=== PATIENT | male | born 1955 | race Caucasian/White ===

== ENCOUNTER 2020-05-05 00:12 | Emergency (ER) | payer OTHER, SELFPAY ==
[2020-05-05 00:15] VITALS: BP 201/93; PULSE 69; RESP 20; TEMP 37; O2SAT 95; BMI 26.6
--- NOTE | 2020-05-05 00:27 | CT_ITS ---
STUDY: CT ABDOMEN AND PELVIS WITHOUT CONTRAST REASON FOR EXAM: Male, 65 years old. RLQ PAIN SINCE Apr.13 -- HX:HTN,HERNIA REPAIR RADIATION DOSAGE (If Supplied By Facility): CTDIvol = ( 8.01 ) mGy, DLP = ( 446.34 ) mGycm TECHNIQUE: Transaxial images were obtained from the dome of the diaphragm to the symphysis pubis without oral contrast, and without intravenous contrast. Sagittal and coronal images were reconstructed. Individualized dose optimization techniques were used for this CT. COMPARISON: None. FINDINGS: The visualized lung bases are unremarkable. The visualized portions of the heart are within normal limits. There is decreased attenuation of the liver consistent with steatosis. The gallbladder is distended. There are layering stones in the gallbladder. Normal spleen. Normal pancreas. Normal bilateral adrenal glands. There is right renal perinephric stranding and fluid in the right side perinephric space. There is moderate right renal edema, moderate right hydronephrosis, distention of the right ureter to the level of the bladder. At the right side ureterovesicular junction there is a stone measuring 6.2 x 5.8 mm. There is mild edema around the right ureter and the bladder wall. Normal left kidney. Normal visualized stomach. There are mildly distended loops of small bowel. There is moderate stool in the colon. The appendix is visualized and appears normal. There is partial calcification of the aorta. Normal inferior vena cava. There view nonspecific reactive lymph nodes within the pelvis. There are shotty appearing lymph nodes within the retroperitoneum. There is thickening of the bladder wall especially on the right side at the ureterovesicular junction. The prostate is enlarged measuring 4 x 5.1 x 4.9 cm. Normal abdominal wall. There are diffuse degenerative changes of the visualized lumbar spine. There is degenerative change of the SI joints. There is degenerative change of the bilateral hip joints. CT/Abdomen/Pelvis without Cont IMPRESSION: Moderate to severe right renal edema. Moderate right hydronephrosis. There is an obstructing stone present at the right ureterovesicular junction measuring 6.2 x 5.8 mm. There is surrounding ureteral edema. Thick-walled appearance of the bladder which may represent cystitis. Mild to moderate enlargement of the prostate. Recommend correlation with laboratory values. Mild ileus. Constipation. Multilevel degenerative change. Enlarged fatty infiltrated liver. Cholelithiasis. Electronically Signed: Kim Lagunas MD at 2:22 EDT Tel , Service support ,
--- NOTE | 2020-05-05 00:28 | ED.VIS.GEN ---
History of Present Illness Chief Complaint: Abd Pain Informant: Patient Onset: Weeks Timing: Intermittent Current Severity: Moderate Maximum Severity: Moderate Narrative: Patient presents with pain along the right groin line that has been intermittent since April 12. He has had several days in the interval where he is completely pain-free but then pain does return. He denies nausea or vomiting. He denies urinary symptoms. He denies back pain. - Past Medical History (1) Diabetes Status: Chronic Past Medical History - Allergies and Home Meds Allergies/Adverse Reactions: Allergies No Known Allergies Allergy (Verified 05/05/20 00:13) Primary Care Physician: Lemuel Bradford III, MD [Primary Care Provider] - Surgical History: - - Left inguinal hernia repair Smoking Status: Never smoker Review of Systems General: Denies: Chills, Fever Eyes: Denies: Visual changes - bilaterally ENT: Denies: Bilateral ear pain Cardiovascular: Denies: Chest pain Respiratory: Denies: Dyspnea, Cough Gastrointestinal: Reports: Abdominal pain. Denies: Nausea, Vomiting, Diarrhea Genitourinary: Denies: Dysuria, Hematuria Musculoskeletal: Denies: Swelling, Extremity Pain Skin: Denies: Rash Neurological: Denies: Headache Hematologic: Denies: Easy bruising, Easy bleeding Allergy: Denies: Uticaria Physical Exam Vital Signs/Narrative: Vital Signs Temp Pulse Resp BP Pulse Ox 05/05/20 00:15 98.6 F 69 20 H 201/93 H 95 Inital Vital Signs reviewed: Yes General: Well nourished, Well developed Head: Normocephalic ENT: Moist mucous membranes Neck: Supple Cardiovascular: Regular rate, Regular rhythm Respiratory: No distress, CTA bilaterally Abdomen: Soft, Nontender, Normal bowel sounds Back: Negative for: CVA tenderness Extremities: Nontender Skin: Normal color Neurological: Alert, Oriented x3 Psychological: Normal affect Diagnostic/Tx/Re-eval Impressions Abdomen/Pelvis CT 05/05/20 00:27 IMPRESSION: Moderate to severe right renal edema. Moderate right hydronephrosis. There is an obstructing stone present at the right ureterovesicular junction measuring 6.2 x 5.8 mm. There is surrounding ureteral edema. Thick-walled appearance of the bladder which may represent cystitis. Mild to moderate enlargement of the prostate. Recommend correlation with laboratory values. Mild ileus. Constipation. Multilevel degenerative change. Enlarged fatty infiltrated liver. Cholelithiasis. Electronically Signed: Kim Lagunas MD at 2:22 EDT Tel , Service support , 05/05/20 00:27 Abdomen/Pelvis without Cont [CT] Stat Laboratory Results 05/05/20 05/05/20 05/05/20 00:19 00:19 00:40 WBC 9.1 RBC 5.09 Hgb 15.4 Hct 45.9 MCV 90.2 MCH 30.3 MCHC 33.6 RDW Std Deviation 41.8 RDW Coeff of Yelitza 12.7 Plt Count 189 MPV 10.1 Immature Gran % (Auto) 0.300 Neut % (Auto) 79.0 H Lymph % (Auto) 12.5 L [place] % (Auto) 7.5 Eos % (Auto) 0.3 Baso % (Auto) 0.4 Absolute Neuts (auto) 7.2 Absolute Lymphs (auto) 1.14 Nucleated RBC % 0 Sodium 137 Potassium 4.4 Chloride 102 Carbon Dioxide 27.0 Anion Gap 8 BUN 33 H Creatinine 2.04 H Estim Creat Clear Calc 40.15 Est GFR (MDRD) Af Amer 43 L Est GFR (MDRD) Non-Af 35 L BUN/Creatinine Ratio 16.2 Glucose 256 H Calcium 10.3 H Urine Color Yellow Urine Clarity Clear Urine pH 5.0 Ur Specific Ivor 1.025 Urine Protein 30 H Urine Glucose (UA) 100 H Urine Ketones Negative Urine Occult Blood 50 H Urine Nitrite Negative Urine Bilirubin Negative Urine Urobilinogen Normal Ur Leukocyte Esterase Negative Urine RBC 0-5 SEEN Urine WBC 0 SEEN Ur Squamous Epith Cells 0 SEEN Urine Bacteria 0 SEEN Urine Mucus 0 SEEN - Medical Decision Making Patient was given 4 mg of morphine, 15 mg of Toradol, 4 mg of Zofran, and IV fluids. On repeat evaluation he is sleeping comfortably and states his pain is completely resolved. Test results are discussed with patient and family at bedside. Patient has been having symptoms for 3-1/2 weeks. At this time he will be discharged with pain medication and instructed to follow-up with Dr. Oropeza for urology. Patient and family are in agreement with this plan. ED Disposition - Plan for ED Patient: Disposition: Home or Assisted Living Diagnosis: Ureterolithiasis Instructions: ED Renal Stone w Colic Prescriptions: Ibuprofen 400 mg PO TID PRN PRN #14 tablet PRN Reason: Pain Score 6-10 Hydrocodone Bitart/Apap 5-325 [[place] 5MG-325MG] 1 tablet PO Q6H PRN PRN 3 Days #10 tablet PRN Reason: Pain Ondansetron [Zofran Odt] 4 mg PO Q8H PRN PRN #10 tablet PRN Reason: Nausea Referrals: Alek Oropeza MD [STAFF PHYSICIAN] - As soon as possible
[2020-05-05 00:36] LABS: Absolute Lymphocyte Count 1.14 X10^3/uL (0.83-4.51); Absolute Neutrophil Count 7.2 X10^3/uL (2.0-7.7); Basophil# 0.04 X10^3/uL; Basophil% 0.4 % (0-1); Eosinophil# 0.03 X10^3/uL; Eosinophils% 0.3 % (0-5); Hematocrit 45.9 % (40-54); Hemoglobin 15.4 g/dL (13.0-16.5); Lymphocyte # 1.14 X10^3/ul (4.0); Lymphocyte % 12.5 % (19-41); Mean Corp Hgb Conc 33.6 g/dL (32-36); Mean Corpuscular Hgb 30.3 pg (27.0-32.0); Mean Corpuscular Volume 90.2 fL (80-94); Mean Platelet Vol. 10.1 fl (6.2-12.0); Monocyte# 0.68 X10^3/uL; Monocyte% 7.5 % (0-10); NRBC Flagged by Analyzer 0 % (0-5); Neutrophil # 7.18 X10^3/uL (2.7-7.7); Platelet Count 189 K/mm3 (150-450); RBC Distribution Width CV 12.7 % (11.6-14.6); RBC Distribution Width SD 41.8 fl (35.1-43.9); Red Blood Count 5.09 M/mm3 (4.6-6.2); White Blood Count 9.1 K/mm3 (4.4-11.0)
[2020-05-05 00:45] LABS: Anion Gap 8 (5-15); BUN 33 mg/dL (7-18); BUN/Creat Ratio 16.2 RATIO (10-20); Calcium,Total 10.3 mg/dL (8.5-10.1); Chloride 102 mmol/L (98-107); Creatinine, Serum 2.04 mg/dL (0.70-1.30); EST Glomerular Filtration Rate 35 mL/min (>60); Est Glom Filt Rate - Afr Amer 43 mL/min (>60); Estimated Creatinine Clearance 40.15 ml/min; Glucose 256 mg/dL (74-106); Potassium 4.4 mmol/L (3.5-5.1); Sodium Level 137 mmol/L (136-145)
[2020-05-05 00:45] LABS: Bacteria 0 SEEN /hpf (None Seen); Mucous, Urine 0 SEEN /hpf (<or=2+); Squamous Epithelial Cells - UA 0 SEEN /hpf (0-5); White Blood Cells 0 SEEN /hpf (0-5)
[2020-05-05] MEDS: Ketorolac 15 MG/ML Vial IV (00:46)
[2020-05-05] MEDS: Morphine 4 MG/ML Syringe IV (00:46)
[2020-05-05] MEDS: 0.9% Normal Saline 1,000 ML 150 ML IV (00:46)
[2020-05-05 00:47] LABS: Color, Urine Yellow (Yellow); Glucose, Dipstick 100 mg/dl (Normal); Ketone-Dipstick Negative (Negative); Leukocyte Esterase-Dipstick Negative /ul (Negative); Nitrite-Dipstick Negative (Negative); Occult Blood-Urine 50 /ul (Negative); Protein-Dipstick 30 mg/dl (Negative); Specific Gravity, Urine 1.025 (1.002-1.030); Urine Bilirubin Dipstick Negative (Negative); Urine Clarity Clear (Clear); Urine Urobilinogen Normal (Normal)
[2020-05-05] MEDS: Ondansetron 4 MG/2 ML Vial IV (00:47)
[2020-05-05 00:54] LABS: Red Blood Cells-Urine 0-5 SEEN /hpf (0-5)
[2020-05-05 02:47] VITALS: BP 153/71; PULSE 56; RESP 17; O2SAT 97
== END 2020-05-05 03:00 | disposition home or self-care (01) ==
PROVIDERS: Emergency Provider Emergency Medicine; PCP Family Medicine
DX: N20.1 Calculus of ureter (principal)
CPT/HCPCS: 74176; 80048; 81001; 85025; 96361; 96374; 96375; 99283; J7030; A4216; J2405

== ENCOUNTER 2020-05-19 11:41 | Day surgery (SDC) | payer OTHER, SELFPAY ==
[2020-05-19] VITALS (11 sets, daily range): BP systolic 141–193; BP diastolic 85–98; PULSE 54–66; RESP 16–18; TEMP 36.1–37.2; O2SAT 99–100; BMI 26.7
--- NOTE | 2020-05-19 07:42 | CT_ITS ---
STUDY: CT ABDOMEN AND PELVIS WITHOUT CONTRAST REASON FOR EXAM: Male, 65 years old. PREOP STONE STUDY RADIATION DOSAGE (If Supplied By Facility): CTDIvol = ( 8.20 ) mGy, DLP = ( 405.84 ) mGycm TECHNIQUE: Transaxial images were obtained from the dome of the diaphragm to the symphysis pubis without oral contrast, and without intravenous contrast. Sagittal and coronal images were reconstructed. Individualized dose optimization techniques were used for this CT. COMPARISON: None. FINDINGS: The visualized lung bases are unremarkable. The visualized portions of the heart are within normal limits. There is decreased attenuation of the liver consistent with steatosis. Normal gallbladder and extrahepatic biliary system. Normal spleen. Normal pancreas. Normal bilateral adrenal glands. Normal right kidney. Normal left kidney. Normal visualized stomach. Normal small intestine. Normal colon. The appendix is visualized and appears normal. Normal abdominal aorta. Normal inferior vena cava. Normal retroperitoneum. Normal urinary bladder. Normal abdominal wall. Mild dextroscoliosis with degenerative disc disease. CT/Abdomen/Pelvis without Cont IMPRESSION: No renal or ureteral stone. Fatty infiltration of the liver. Electronically Signed: Nagi Love MD at 12:12 EST Tel , Service support ,
--- NOTE | 2020-05-19 11:48 | PCM.HP.STD ---
Problem List (1) Ureteral calculus Status: Acute (2) Ureteral calculi Status: Acute History of Present Illness Date of Admission: 05/19/20 Chief Complaint: Right ureteral calculi with obstruction The patient is a 65 year old male who had a stone 6 mm in the distal right ureter. He has been having obstructive symptoms off and on. Today we did a repeat CAT scan he still demonstrates a stone in the distal right ureter looks like he still has a stone in the ureter so we will proceed with laser lithotripsy of note he is asymptomatic but was positive for the Covid on a screening test. Past Medical History Past Medical History (Chronic Problems): Chronic Problems Diabetes (Chronic) Allergies No Known Allergies Allergy (Verified 05/11/20 09:05) Home Medications: Ambulatory Orders Medication Instructions Recorded NK 05/11/20 Surgical History: - - Left inguinal hernia repair Smoking Status: Never smoker Tobacco Use: Non-smoker Review of Systems Constitutional: Denies: Chills, Fever, Weight Change HEENT: Denies: Head Aches, Sinus Congestion, Sinus Drainage Cardiovascular: Denies: Chest Pain, Palpitations Respiratory: Denies: Cough, Shortness of breath at rest, Sputum production Gastrointestinal: Denies: Abdominal Pain, Nausea, Vomiting Genitourinary: Denies: Dysuria Musculoskeletal: Denies: Joint Pain, Joint Tenderness Skin: Denies: Rash, Wounds Neurological: Denies: Numbness, Tingling, Focal weakness Psychiatric: Denies: Anxiety, Depression, Homicidal Ideations, Suicidal Ideations Hematologic/ Lymphatic: Denies: Easy Bruising, Easy Bleeding VTE Information - Inpt Only VTE Present on Admission: No VTE Mechan Device Prophylaxis: SCD's - Physical Exam Vitals/I&O's: Body Mass Index (BMI) 26.6 General: Alert, Oriented x3, Cooperative HEENT: Atraumatic, PERRLA, EOMI, Normocephalic Neck: Supple, No JVD, Negative Carotid Bruits Lungs: Clear to auscultation, Normal air movement Cardiovascular: Regular rate, No murmurs Abdomen: Bowel Sounds Present, Soft, Non Tender Extremities: No edema, Capillary Refill Less than 3 Seconds Skin: No rashes, No breakdown Musculoskeletal: No Tenderness to Palpation of Joints or Extremities Neurological: Cranial nerves II-XII grossly intact Psych/Mental Status: Normal Affect, Appropriate Assessment/Plan All Active Problems Ureteral calculus (Acute) Ureteral calculi (Acute) Plan to proceed with right ureteroscopy laser lithotripsy of stone and stent placement.
[2020-05-19] MEDS: Lactated Ringers 1,000 ML 100 ML IV (12:39)
[2020-05-19 12:55] LABS: Bedside Glucose 200 mg/dL (70-110)
--- NOTE | 2020-05-19 14:50 | DCINST_ITS ---
Discharge Diet: No Restrictions, Light diet - advance as tolerated Discharge Activity: Return to Normal Activity, May Not Drive - for 2 days. Additional Activity Instructions:: Please be aware that pain medications may cause nausea. You should typically eat light foods as you take your pain medication. Pain medication may cause constipation, if this is a problem for you, please discuss with your doctor. Additional Instructions: Pull on string to remove stent next Sunday Allergies/Adverse Reactions: Allergies No Known Allergies Allergy (Verified 05/11/20 09:05) Medications to take at Discharge Ciprofloxacin [Cipro] 500 mg PO BID #14 tab 05/19/20 Hydrocodone/Acetaminophen [[place] 5-325 Tablet] 1 each PO Q4H PRN PRN #14 tablet 05/19/20 The following prescriptions were given: Ciprofloxacin [Cipro] 500 mg PO BID #14 tab Transmission Status: Pending to [facility] Hydrocodone/Acetaminophen [[place] 5-325 Tablet] 1 each PO Q4H PRN PRN #14 tablet PRN Reason: Pain Score 1-10 Transmission Status: Sent to [facility] Primary Care Physician: Lemuel Bardford III, MD [Primary Care Provider] - Test Results: Test results from this visit will be discussed in further detail at your follow- up appointment, if applicable. Please Follow Up With: Alek Oropeza MD - [phone] When: in 4 weeks, please call to make an appointment.
[2020-05-19] MEDS: Cefazolin 2 GM in 0.9% Normal Saline 100 ML IV (15:57)
--- NOTE | 2020-05-19 16:42 | OP.PCM_ITS ---
Problem List (1) Ureteral calculus Status: Acute (2) Ureteral calculi Status: Acute Report of Operation Date of Procedure: 05/19/20 Pre-Operative Diagnosis: Right distal ureteral calculi Post-Operative Diagnosis: The same Surgery/Procedure Performed:: Cystoscopy, right retrograde pyelogram interpretation fluoroscopic images, balloon dilation of the right ureter, right ureteroscopy laser lithotripsy of stones and basket of fragments. Right stent placement with string Description of Surgical Findings:: 65-year-old male was taken back to the operating room at the smooth induction of general anesthesia he was placed in dorsolithotomy position the penis and testicles were prepped and draped in usual sterile fashion went into the bladder with a 21 [place] rigid cystourethroscope once inside the bladder identified the anatomy of the right and left ureteral orifice in normal position bladder neck was normal the prostate was normal the verumontanum was normal the sphincter was normal the entire length of the urethra is normal no strictures or scar tissues. I then cannulated the left ureteral orifice with a Glidewire and a Pollack catheter performed a retrograde pyelogram could see the stone in the distal ureter to see contrast going up into the kidney advanced the Pollack catheter up into the kidney and then through the Pollick catheter and then advanced a Super Stiff wire left this wire in place for the entire case as a safety wire. I then went back in the bladder with the scope and then put a Glidewire up next to the Super Stiff wire and then advanced a balloon dilator it was a 15 [place] 10 cm balloon dilator I then balloon dilated the distal ureter as the ureter was quite tight from the stone. Once the balloon dilation was completed then I left the wire in place then over the wire went in with a offset Olympus 7.5 [place] ureteroscope was able to get into the ureter and immediately identified the stone. I then pulled out the wire, the safety wires in place, and then I used a 200 ?m laser fiber and perform laser lithotripsy and the stone and broke it up a little tiny pieces. I then used a tipless nitinol basket to basket all the pieces out of the ureter. Once the ureter was clear of all the remaining pieces since the ureter had been dilated and stretched then I decided to leave a stent in there was no injury or tear perforation of the ureter but for safety we backed loaded up a stent over the Super Stiff wire advanced a stent all the way up to the kidney pulled the wire and the stent coiled in the kidney and bladder good position I went back in the bladder with the scope reposition the stent drained the bladder remove the cystoscope left the stent on the string and left the string and out quite long the patient will pull the stent out himself next week as instructed. Manual follow-up in my office in 6 weeks for an ultrasound of his kidney for follow-up. Type of Anesthesia:: General Drains: stent right - Admit VTE Documentation VTE Present on Admission: No VTE Mechan Device Prophylaxis: SCD's
--- NOTE | 2020-05-19 16:56 | CALC_PTH ---
PATIENT: AVERY BUITRAGO [place] [facility] [place][id number] AGE/SX: 65/M ROOM: RE05/19/[address]: Dr. Alek Oropeza MD : [id number] BED: DIS: 05/19/2020 SPEC #: [id number] RECD: 05/20/20 07:47 STATUS: TAMARA ADIS #: [id number] ISIDRO: 05/19/20 16:[address]: Alek Oropeza DEPT: SURGICAL PATHOLOGY RECD BY: Nargis Ferrer ENTERED: 05/20/20 07:47 SP TYPE: Calculi OTHR DR: Lemuel Bradford III, MD Tissues: CALCULI Procedures: Surgery Specimen Level I HEADER OPERATION: Ureteroscopy, laser stone, ureteral stent PRE-OP DIAGNOSIS: Ureteral calculi TISSUE SUBMITTED: Right ureteral calculi GROSS DIAGNOSIS A fragment of stone, clinically right ureteral calculus, saved entirely for analysis if needed. SJ:clifton 05/20/20 COMMENT If chemical analysis is requested on this specimen, please notify the laboratory. GROSS DESCRIPTION Received is one container labeled with the patient's name and designated right ureteral calculi. The specimen consists of a fragment of black stone measuring 0.3 x 0.2 x 0.1 cm. The entire specimen is saved for stone analysis if needed. / LAUREN:clifton 05/20/20 CPT: 06980
[2020-05-19] MEDS: Ketorolac 15 MG/ML Vial IV (17:45)
== END 2020-05-19 19:37 | disposition home or self-care (01) ==
LOC: SDC 11:41 → AC 11:42
PROVIDERS: Anesthesiology; PCP Family Medicine; Referring Provider Urology; Visit Provider Urology
PROC: 0TJ98ZZ Inspection of Ureter, Via Natural or Artificial Opening Endoscopic (ICD-10-PCS; CPT 52352; principal; 2020-05-19 13:45)
DX: U07.1 COVID-19 (principal); N20.1 Calculus of ureter; Z20.828 Contact with and (suspected) exposure to other viral communicable diseases; E11.9 Type 2 diabetes mellitus without complications; E78.00 Pure hypercholesterolemia, unspecified; I10 Essential (primary) hypertension
CPT/HCPCS: 00918; 52356; 74176; 76000; 82962; 87635; 88300; C9803; J7120; C1726; C1769; C2617; J2405; U0003

== ENCOUNTER 2024-07-02 09:13 | Day surgery (SDC) | payer OTHER, SELFPAY ==
--- NOTE | 2024-07-01 16:03 | PAT.ANE_ITS ---
Pre-Assessment Diagnosis/Proposed Procedure Planned Operative Procedure(s): COLONOSCOPY-OA Anesthesia History Anesthesia History - labor relations or personnel negotiator: Anesthesia History - labor relations or personnel negotiator Hx Hospitalization No 06/30/24 12:25 Any Problems With Anesthesia Yes: low hr with anesthesia, 06/30/24 12:25 HARD TIME WAKING Cholinesterase deficiency No 06/30/24 12:25 You/Your Family Experience No 06/30/24 12:25 fever (hyperthermia) with Relationship Recent Exposure to Contagious Yes: postivie for covid 05/19/20 12:17 Disease Does patient have nerve No 06/30/24 12:25 stimulator Patient instructed to have device shut off --Does patient have Pacemaker or ICD? When Was Last Pacemaker Check QUESTION #4 FULL TEXT: You/Your Family Experience fever (hyperthermia) with Anesthesia Last Oral Intake Last Oral intake: Last Oral Intake NPO since Meds taken in AM with sips of water? Meds patient instructed to take am of surgery PONV PONV - labor relations or personnel negotiator: PONV - labor relations or personnel negotiator Female No 06/30/24 12:25 HX of Motion Sickness No 06/30/24 12:25 HX of N/V After Surgery No 06/30/24 12:25 Non-Smoker Yes 06/30/24 12:25 Duration of Surgery greater No 06/30/24 12:25 than 60 minutes Number of Risk Factors 1 06/30/24 12:25 PONV Score Low Risk 06/30/24 12:25 Height & Weight Height & Weight: Anesthesia: Height & Weight Height 6 ft 05/19/24 14:36 Respiratory Assessment Respiratory Assessment - labor relations or personnel negotiator: Respiratory Tract Infection Hx - labor relations or personnel negotiator Hx Respiratory Tract Infection No 06/30/24 12:25 STOP Sleep Apnea STOP Sleep Apnea - labor relations or personnel negotiator: STOP Sleep Apnea - labor relations or personnel negotiator Hx Hypertension Yes: CONTROLLED ON MED 06/30/24 12:25 Hx Sleep Apnea No 06/30/24 12:25 CPAP BIPAP Do you snore loudly (louder No 06/30/24 12:25 than talking or can be heard Do you often feel tired/ No 06/30/24 12:25 fatigued/ sleepy during daytime? Has anyone observed you stop No 06/30/24 12:25 breathing during sleep? STOP Results Negative 06/30/24 12:25 QUESTION #5 FULL TEXT : Do you snore loudly (louder than talking or can be heard through closed doors)? 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 Specify any problems Hx of Preganancy in last 3 N/A 06/30/24 12:25 Months Nurse Filling Out Transfusion VCHRISTIN 06/30/24 12:25 & Questions: Date: 06/30/24 06/30/24 12:25 Time: 12:06/30/24 12:25 Patient unable to answer at this time (ie. confused, unrespo /Reproduction History /Reproductive History - labor relations or personnel negotiator: /Reproductive Hx- labor relations or personnel negotiator Hx Now Gestational Age (in weeks): EDC: Hx Hx Para Hx Section SAB PFSH Medical History (Updated 06/30/24 @ 12:24 by Nunu Zepeda) Wears glasses Diabetes Kidney stone Non-smoker Cardiology follow-up encounter Bradycardia AV block, Mobitz 1 HTN (hypertension) Diabetes Home Medications ?Medication ?Instructions ?Recorded ?Last Taken ?Type lisinopril 20 mg tablet 20 mg PO BID 05/19/24 Unknown History metformin 1,000 mg tablet 1,000 mg PO BID 05/19/24 Unknown History Allergy/AdvReac Type Severity Reaction Status Date / Time adhesive Allergy Rash from Verified 06/30/24 12:17 glucose monitor Surgical History (Updated 06/30/24 @ 12:24 by Nunu Zepeda) Hx of cystoscopy Hx of hernia repair Hx of colonoscopy Social History (Updated 05/19/24 @ 14:30 by Mercedez Wood) household members: spouse current occupational status: employed Smoking Status: Never smoker alcohol intake: current alcohol intake frequency: holidays/special occasions only substance use type: does not use Audit: Pertinent Findings Pertinent Findings EKG Perinent findings: May 26, 2024. Marked sinus bradycardia at 42 bpm. With second-degree Mobitz type I AV block. Consult pertinent findings: May 26, 2024. Dr. Louie. Cardiology. #1 patient had bradycardia on EKG. Patient was exercised and had the appropriate increase in heart rate. No syncope was noted. Asymptomatic at rest. Patient to follow-up with PCP. Recommendation Anesthesia Recommendation Anesthesia recommendation: OPTIMIZED for anesthesia
--- NOTE | 2024-07-02 09:30 | PCM.PRE.AN2 ---
ASA Classification* ASA Classification ASA Classification: 2 Assessment & Plan Anesthesia* Anesthesia Assessment Anesthesia Assessment: Discussed sedation and/or anesthesia options, risks, benefits, and alternatives with patient/parents/legal guardian/POA. Questions invited. The patient/parents/legal guardian/POA seems to understand and agrees to proceed with anesthesia plan. Reviewed the physical assessment, medical history, allergy history and patient home medications list prior to surgery/procedure/anesthetic and documented any changes. Performed airway and anesthesia risk assessments. Anesthesia Type Anesthesia Type: MAC Anesthesia Focused Assessment* Temperature: 97.5 F Pulse Rate: 51 Blood Pressure: 152/70 Respiratory Rate: 16 Pulse Ox: 100 Airway Assessment Mouth opens: >3 cm Mallampati Score: II Focused Labs Anesthesia Preop lab: CBC WBC 9.1 K/mm3 (4.4-11.0) 05/05/20 00:19 RBC 5.09 M/mm3 (4.6-6.2) 05/05/20 00:19 Hgb 15.4 g/dL (13.0-16.5) 05/05/20 00:19 Hct 45.9 % (40-54) 05/05/20 00:19 Plt Count 189 K/mm3 (150-450) 05/05/20 00:19 CHEMISTRY Potassium 4.4 mmol/L (3.5-5.1) 05/05/20 00:19 Sodium 137 mmol/L (136-145) 05/05/20 00:19 BUN 33 mg/dL (7-18) H 05/05/20 00:19 Creatinine 2.04 mg/dL (0.70-1.30) H 05/05/20 00:19 Glucose 256 mg/dL (74-106) H 05/05/20 00:19 POC Glucose 200 mg/dL (70-110) H 05/19/20 12:31 COAG Pre-Assessment Diagnosis/Proposed Procedure Planned Operative Procedure(s): COLONOSCOPY-OA Anesthesia History 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 When Was Last Pacemaker Check QUESTION #4 FULL TEXT: You/Your Family Experience fever (hyperthermia) with Anesthesia Last Oral Intake Last Oral intake: Last Oral Intake NPO since 07:30 07/02/24 09:33 Meds taken in AM with sips of Yes 07/02/24 09:33 water? Meds patient instructed to SEE MAR 07/02/24 09:33 take am of surgery PONV PONV - flat optical element maker: PONV - flat optical element maker Female No 06/30/24 12:25 HX of Motion Sickness No 06/30/24 12:25 HX of N/V After Surgery No 06/30/24 12:25 Non-Smoker Yes 06/30/24 12:25 Duration of Surgery greater No 06/30/24 12:25 than 60 minutes Number of Risk Factors 1 06/30/24 12:25 PONV Score Low Risk 06/30/24 12:25 Height & Weight Height & Weight: Anesthesia: Height & Weight Height 6 ft 07/02/24 09:33 Weight: 88.451 kg 07/02/24 09:33 Body Mass Index (BMI) 26.4 07/02/24 09:33 Respiratory Assessment Respiratory Assessment - flat optical element maker: Respiratory Tract Infection Hx - flat optical element maker Hx Respiratory Tract Infection No 06/30/24 12:25 STOP Sleep Apnea STOP Sleep Apnea - flat optical element maker: STOP Sleep Apnea - flat optical element maker Hx Hypertension Yes: CONTROLLED ON MED 06/30/24 12:25 Hx Sleep Apnea No 06/30/24 12:25 CPAP BIPAP Do you snore loudly (louder No 06/30/24 12:25 than talking or can be heard Do you often feel tired/ No 06/30/24 12:25 fatigued/ sleepy during daytime? Has anyone observed you stop No 06/30/24 12:25 breathing during sleep? STOP Results Negative 06/30/24 12:25 QUESTION #5 FULL TEXT : Do you snore loudly (louder than talking or can be heard through closed doors)? Tobacco Use History Tobacco Use History - flat optical element maker: Tobacco Use History - flat optical element maker Tobacco Use Smoking Status Never smoker 06/30/24 12:25 Hx Tobacco Use No 06/30/24 12:25 Years Smoking Packs Smoked per Day Smoking Cessation Date was within the last 15 years Hx Smoking Cessation Date Hx Smoking Cessation Counseling Hematologic Medial History Hematologic Hx - flat optical element maker: Hematologic Medical Hx - party host Hx of Blood Transfusion No 06/30/24 12:25 Hx of Transfusion in last 3 No 06/30/24 12:25 Months Date of Last Transfusion (if within last 3 months) Ever experience any problems No 06/30/24 12:25 with transfusion(s)? Specify any problems Hx of Preganancy in last 3 N/A 06/30/24 12:25 Months Nurse Filling Out Transfusion VCHRISTIN 06/30/24 12:25 & Questions: Date: 06/30/24 06/30/24 12:25 Time: 12:06/30/24 12:25 Patient unable to answer at this time (ie. confused, unrespo /Reproduction History /Reproductive History - flat optical element maker: /Reproductive Hx- flat optical element maker Hx Now Gestational Age (in weeks): EDC: Hx Hx Para Hx Section SAB PFSH Medical History Wears glasses Diabetes Kidney stone Non-smoker Cardiology follow-up encounter Bradycardia AV block, Mobitz 1 HTN (hypertension) Diabetes Home Medications ?Medication ?Instructions ?Recorded ?Last Taken ?Type lisinopril 20 mg tablet 20 mg PO BID 05/19/24 07/02/24 History metformin 1,000 mg tablet 1,000 mg PO BID 05/19/24 Unknown History Allergy/AdvReac Type Severity Reaction Status Date / Time adhesive Allergy Rash from Verified 07/02/24 09:33 glucose monitor Surgical History Hx of cystoscopy Hx of hernia repair Hx of colonoscopy Social History household members: spouse current occupational status: employed Smoking Status: Never smoker alcohol intake: current alcohol intake frequency: holidays/special occasions only substance use type: does not use Review of Systems (Anesthesia) ROS Narrative System reviewed and no additional complaints, except as documented.
[2024-07-02 09:33] VITALS: BP 152/70; PULSE 51; RESP 16; TEMP 36.4; O2SAT 100; BMI 26.4
--- NOTE | 2024-07-02 09:39 | PCM.HP.STD ---
HPI - General General Date of Admission: 07/02/24 Date of Service: 07/02/24 Chief Complaint: Screening colonoscopy HPI Narrative AVERY BUITRAGO, is a 69 M who presents today for screening colonoscopy. He had a colonoscopy 15 years ago and it was normal. He is not having any abdominal pain, cramping, chest pain or shortness of breath. He does have type 2 diabetes which she takes metformin for in mild hypertension for which she takes lisinopril. [facility] Medical History Wears glasses Diabetes Kidney stone Non-smoker Cardiology follow-up encounter Bradycardia AV block, Mobitz 1 HTN (hypertension) Diabetes Home Medications ?Medication ?Instructions ?Recorded ?Last Taken ?Type lisinopril 20 mg tablet 20 mg PO BID 05/19/24 07/02/24 History metformin 1,000 mg tablet 1,000 mg PO BID 05/19/24 Unknown History Allergy/AdvReac Type Severity Reaction Status Date / Time adhesive Allergy Rash from Verified 07/02/24 09:33 glucose monitor Surgical History Hx of cystoscopy Hx of hernia repair Hx of colonoscopy Social History household members: spouse current occupational status: employed Smoking Status: Never smoker alcohol intake: current alcohol intake frequency: holidays/special occasions only substance use type: does not use Vital Signs Vital Signs Vital Signs: 07/02/24 09:33 07/02/24 09:33 Temperature 97.5 F L Temperature Source Temporal Pulse Rate 51 L Respiratory Rate 16 Respiratory Pattern Normal Blood Pressure 152/70 H Blood Pressure Mean 97 Blood Pressure Source Monitor Blood Pressure Position Sitting Blood Pressure Location Left Arm Pulse Ox 100 Oxygen Delivery Method Room Air Weight Weight: 195 lb Body Mass Index (BMI) 26.4 Physical Exam Const alert, oriented x3, no apparent distress and healthy appearing General Appearance: cooperative GI normal to inspection, nondistended, normoactive bowel sounds, soft to palpation, non-tender and non-distended Percussion: normal to percussion Rectal Exam: deferred Assessment & Plan Assessment/Plan (1) Encounter for screening for malignant neoplasm of colon: PLAN: He was explained alternatives, risk and benefits include understanding bleeding, infection, sepsis, perforation, need for charge and . He will have an ASA of 3.
[2024-07-02 09:47] VITALS: BP 152/70; PULSE 51; RESP 16; TEMP 36.4; O2SAT 100
--- NOTE | 2024-07-02 10:21 | PCM.POST.ANE ---
Anesthesia: Postop Eval I Current Vital Signs Temperature: 97.6 F Pulse Rate: 48 Blood Pressure: 117/75 Respiratory Rate: 16 Pulse Ox: 100 Oxygen Delivery Method: Room Air Assessment Airway patent: Yes Spontaneous unlabored respirations: Yes Mental status: Asleep nausea: No Vomiting: No Anesthesia Complication: No Fluid Hydration Crystalloid volume administer (ml): 20 Total IV fluid infused: 20 Progress Note Anesthesia document: Postop Eval 1 completed: Yes
[2024-07-02 10:22] VITALS: BP 117/65; BP 117/75; BP 152/70; PULSE 48; PULSE 59; RESP 16; RESP 18; TEMP 36.4; O2SAT 100; O2SAT 98
--- NOTE | 2024-07-02 10:23 | OP.CCLET_ITS ---
07/02/2024 Pollo Mccauley Re : Colonoscopy procedure for Eladio Raza Dear Lamberto This procedure was performed on Tuesday, July 02, 2024. My impressions and recommendations are as follows: Impressions : - Two 8 mm polyps in the sigmoid colon and in the cecum, removed with a jumbo cold forceps. Resected and retrieved. - Diverticulosis in the recto-sigmoid colon. - The examination was otherwise normal on direct and retroflexion views. Recommendations : - Discharge patient to home. - Resume previous diet. - Continue present medications. - Await pathology results. - Repeat colonoscopy in 5 years for surveillance. My findings are described in the full procedure note, which is enclosed. If I can be of further assistance, please feel free to contact me at . Sincerely, Baldo Talley, 07/02/2024 10:22:41 AM This report has been signed electronically.
--- NOTE | 2024-07-02 10:23 | OP.COLON_ITS ---
Patient Name: Eladio Raza Procedure Date: 07/02/2024 9:45 AM Date of : 1955 Age: 69 Procedure: Colonoscopy Indications: Screening for colorectal malignant neoplasm Providers: Baldo Talley DO Medicines: Monitored Anesthesia Care Patient Profile: This is a 69 year old male. Refer to note in patient chart for documentation of history and physical. Last Colonoscopy: more than 10 years ago. Complications: No immediate complications. Procedure: Pre-Anesthesia Assessment: - Prior to the procedure, a History and Physical was performed, and patient medications and allergies were reviewed. The patient is competent. The risks and benefits of the procedure and the sedation options and risks were discussed with the patient. All questions were answered and informed consent was obtained. Patient identification and proposed procedure were verified by the physician in the pre-procedure area. Mental Status Examination: alert and oriented. Airway Examination: normal oropharyngeal airway and neck mobility. Respiratory Examination: clear to auscultation. CV Examination: normal. Prophylactic Antibiotics: The patient does not require prophylactic antibiotics. Prior Anticoagulants: The patient has taken no anticoagulant or antiplatelet agents except for NSAID medication. ASA Grade Assessment: II - A patient with mild systemic disease. After reviewing the risks and benefits, the patient was deemed in satisfactory condition to undergo the procedure. The anesthesia plan was to use monitored anesthesia care (MAC). Immediately prior to administration of medications, the patient was re-assessed for adequacy to receive sedatives. The heart rate, respiratory rate, oxygen saturations, blood pressure, adequacy of pulmonary ventilation, and response to care were monitored throughout the procedure. The physical status of the patient was re-assessed after the procedure. After I obtained informed consent, the scope was passed under direct vision. Throughout the procedure, the patient's blood pressure, pulse, and oxygen saturations were monitored continuously. The colonoscope was introduced through the anus and advanced to the cecum, identified by appendiceal orifice and ileocecal valve. The colonoscopy was performed without difficulty. The patient tolerated the procedure well. The quality of the bowel preparation was adequate. The ileocecal valve, appendiceal orifice, and rectum were photographed. Scope In: 9:59:59 AM Scope Withdrawal Time 0 hours 12 minutes 36 seconds Scope Out: 10:15:16 AM Total Procedure Duration Time 0 hours 15 minutes 17 seconds Findings: The perianal and digital rectal examinations were normal. Two sessile polyps were found in the sigmoid colon and cecum. The polyps were 8 mm in size. These polyps were removed with a jumbo cold forceps. Resection and retrieval were complete. Verification of patient identification for the specimen was done. Estimated blood loss was minimal. Two small-mouthed diverticula were found in the recto-sigmoid colon. The exam was otherwise without abnormality on direct and retroflexion views. Impression: - Two 8 mm polyps in the sigmoid colon and in the cecum, removed with a jumbo cold forceps. Resected and retrieved. - Diverticulosis in the recto-sigmoid colon. - The examination was otherwise normal on direct and retroflexion views. Recommendation: - Discharge patient to home. - Resume previous diet. - Continue present medications. - Await pathology results. - Repeat colonoscopy in 5 years for surveillance. Procedure Code(s): --- Professional --- 92168, Colonoscopy, flexible; with biopsy, single or multiple CPT copyright 2021 [employer]. All rights reserved. The codes documented in this report are preliminary and upon concession cashier review may be revised to meet current compliance requirements. Baldo Talley DO 07/02/2024 10:22:41 AM This report has been signed electronically. Number of Addenda: 0 Note Initiated On: 07/02/2024 9:45 AM
[2024-07-02 10:25] VITALS: BP 135/84; BP 152/70; PULSE 59; RESP 14; O2SAT 98
--- NOTE | 2024-07-02 10:30 | COLBX_PTH ---
PATIENT: AVERY BUITRAGO LOC: EN U#:[id number] AGE/SX: 69/M ROOM: RE07/02/[address]: Dr. Baldo Talley DO : 1955 BED: DIS: 07/02/2024 SPEC #: [id number] RECD: 07/02/24 11:29 STATUS: TAMARA ADIS #: [id number] ISIDRO: 07/02/24 10:[address]: Baldo Talley DEPT: SURGICAL PATHOLOGY RECD BY: Ciaran Steel ENTERED: 07/02/24 11:54 SP TYPE: COLON BX OTHR DR: Vandana Orantes, CIVIL RIGHTS ATTORNEY-C Tissues: A - Cecum, NOS B - Sigmoid colon biopsy Procedures: Surgery Specimen Level IV HEADER OPERATION: Colonoscopy, biopsy PRE-OP DIAGNOSIS: Encounter for screening for malignant neoplasm of colon TISSUE SUBMITTED: A- Cecal polyp biopsy, B- Sigmoid polyp biopsy MICROSCOPIC DIAGNOSIS A. Cecal polyp, biopsy: Fragments of hyperplastic polyp. B. Sigmoid polyp, biopsy: Tubular adenoma. . 07/03/2024 MICROSCOPIC DESCRIPTION Slides are reviewed. GROSS DESCRIPTION A. Received in fixative is one container labeled with the patient's name and designated Cecal polyp biopsy. The specimen consists of two irregular fragments of light khan soft tissue that in aggregate measure 0.8 x 0.4 x 0.1 cm. The specimen is totally submitted in one cassette. B. Received in fixative is one container labeled with the patient's name and designated Sigmoid polyp biopsy. The specimen consists of one irregular fragment of light khan soft tissue that measures 0.2 x 0.2 x 0.1 cm. The specimen is totally submitted in one cassette. LAUREN. 07/02/2024 TC:1 [facility]:[id number]
[2024-07-02 10:40] LABS: Bedside Glucose 204 mg/dL (74-106)
[2024-07-02 10:41] VITALS: BP 137/73; BP 152/70; PULSE 62; RESP 14; TEMP 36.9; O2SAT 98
[2024-07-02 11:01] VITALS: BP 152/70
--- NOTE | 2024-07-02 11:01 | POSTOPAN2_ITS ---
Anesthesia Postop Eval I Sum Postop Eval Completion status Anesthesia document: Postop Eval 1 completed: Yes Anesthesia Postop Eval I Summary Anesthesia Postop Eval I Summary: Anesthesia Postop Eval I: Assessment Summary Airway patent Yes 07/02/24 10:22 QUARTER [email or web address].[email or web address] Spontaneous unlabored Yes 07/02/24 10:22 QUARTER SUPERVISOR.[email or web address] respirations Mental status Asleep 07/02/24 10:22 QUARTER [email or web address] nausea No 07/02/24 10:22 QUARTER SUPERVISOR.LIBERTY Vomiting No 07/02/24 10:22 QUARTER SUPERVISORGINGER Anesthesia Postop Eval I: Fluid Summary Crystalloid volume administer 20 07/02/24 10:22 QUARTER SUPERVISOR.LIBERTY (ml) Colloids volume administered ( ml) Blood Product volume administered (ml) Total IV fluid infused 20 07/02/24 10:22 QUARTER SUPERVISORGINGER Anesthesia Postop Eval I: Summary Notes Anesthesia Complication No 07/02/24 10:22 GRICEL Anesthesia Complication Comment: Post-operative progress note Anesthesia: Postop Eval II Evaluation Mental status: Awake Pain Level: 0 nausea: No Vomiting: No
--- NOTE | 2024-07-02 11:01 | PCM.POSTANE2 ---
Anesthesia Postop Eval I Sum Postop Eval Completion status Anesthesia document: Postop Eval 1 completed: Yes Anesthesia Postop Eval I Summary Anesthesia Postop Eval I Summary: Anesthesia Postop Eval I: Assessment Summary Airway patent Yes 07/02/24 10:22 POSTAL INSPECTOR.[email or web address] Spontaneous unlabored Yes 07/02/24 10:22 POSTAL INSPECTOR.[email or web address] respirations Mental status Asleep 07/02/24 10:22 POSTAL INSPECTOR.LIBERTY nausea No 07/02/24 10:22 POSTAL INSPECTOR.LIBERTY Vomiting No 07/02/24 10:22 POSTAL INSPECTORGINGER Anesthesia Postop Eval I: Fluid Summary Crystalloid volume administer 20 07/02/24 10:22 POSTAL INSPECTOR.LIBERTY (ml) Colloids volume administered ( ml) Blood Product volume administered (ml) Total IV fluid infused 20 07/02/24 10:22 POSTAL INSPECTORGINGER Anesthesia Postop Eval I: Summary Notes Anesthesia Complication No 07/02/24 10:22 GRICEL Anesthesia Complication Comment: Post-operative progress note Anesthesia: Postop Eval II Evaluation Mental status: Awake Pain Level: 0 nausea: No Vomiting: No
== END 2024-07-02 11:21 | disposition home or self-care (01) ==
LOC: EN 09:14 → AC 09:21
PROVIDERS: PCP Registered Nurse; Referring Provider Registered Nurse; Visit Provider Internal Medicine Gastroenterology
PROC: 0DJD8ZZ Inspection of Lower Intestinal Tract, Via Natural or Artificial Opening Endoscopic (ICD-10-PCS; CPT 45378; principal; 2024-07-02 10:25)
DX: Z12.11 Encounter for screening for malignant neoplasm of colon (principal); E11.9 Type 2 diabetes mellitus without complications; K57.30 Diverticulosis of large intestine without perforation or abscess without bleeding; D12.5 Benign neoplasm of sigmoid colon; I10 Essential (primary) hypertension; Z79.899 Other long term (current) drug therapy; Z79.84 Long term (current) use of oral hypoglycemic drugs
CPT/HCPCS: 45380; 82962; 88305